=== PATIENT | male | born 1990 | race Hispanic/Latino ===

== ENCOUNTER 2017-04-08 09:32 | Emergency (ER) | payer SELFPAY ==
[2017-04-08] MEDS ORDERED: Adacel (T-DAP) 0.5 ML VIAL ONE (09:48)
== END 2017-04-08 10:33 | disposition home or self-care (01) ==
LOC: NAV ERS 09:32
DX: S61.211A Laceration without foreign body of left index finger without damage to nail, initial encounter (principal); L08.9 Local infection of the skin and subcutaneous tissue, unspecified; W26.0XXA Contact with knife, initial encounter; Y92.009 Unspecified place in unspecified non-institutional (private) residence as the place of occurrence of the external cause
CPT/HCPCS: 90471; 90715